=== PATIENT | male | born 1995 | race Caucasian/White ===

== ENCOUNTER 2019-10-13 15:38 | Emergency (ER) | payer OTHER ==
[~2019-10-13] VITALS: Ht 172.7 cm; Wt 81.7 kg
[~2019-10-13 15:38] MED LIST: ERYTHROMYCIN E3.5 G3 OPHTHALMIC; HYDROCODONE-AP1 EAC6 PO
== END 2019-10-13 16:00 ==
LOC: M.ERS 15:38
DX: Z02.83 Encounter for blood-alcohol and blood-drug test (principal)